=== PATIENT | male | born 2000 | race Two or more races ===

== ENCOUNTER 2025-06-15 17:51 | Emergency (ER) | payer SELFPAY | END 2025-06-15 19:16 | disposition home or self-care (01) | LOC: JD.ED 17:51 | DX: S91.311A Laceration without foreign body, right foot, initial encounter (principal); S40.211A Abrasion of right shoulder, initial encounter; S60.512A Abrasion of left hand, initial encounter; S60.511A Abrasion of right hand, initial encounter; F17.210 Nicotine dependence, cigarettes, uncomplicated; W25.XXXA Contact with sharp glass, initial encounter; Y93.89 Activity, other specified | CPT/HCPCS: 73620-26-RT; 73620-RT; 99282; 99283 ==